=== PATIENT | female | born 1945 | race Caucasian/White ===

== ENCOUNTER 2018-08-07 12:32 | Emergency (ER) | payer MEDICARE ==
[~2018-08-07] VITALS: Ht 152.4 cm; Wt 68.2 kg
[2018-08-07 12:34] VITALS: BP 175/91; TEMP 99
[2018-08-07 13:35] LABS: BASO % 0.3 % (0.0-2.0); EOS # 0.1 (0.0-0.7); GRAN # 6.4 (1.4-6.5); GRAN % 69.7 % (42.2-75.2); HEMATOCRIT 42.4 % (37.0-47.0); LYMPH # 2.1 (1.2-3.4); LYMPH % 22.8 % (20.0-51.0); MEAN CELL VOLUME 94 fl (80.0-100.0); MEAN CORPUSCULAR HEMOGLOBIN 31 pg (27.0-31.0); MEAN CORPUSCULAR HGB CONC 33 g/dl (33.0-37.0); MEAN PLATELET VOLUME 9.7 fl (7.4-10.4); MONO # 0.5 (0.1-0.6); MONO % 5.9 % (1.7-9.3); PLATELET COUNT 230 K/mm3 (130-400); REDCELL DISTRIBUTION WIDTH-CV 12.6 % (11.5-14.5)
[2018-08-07 13:46] LABS: ALBUMIN 3.9 gm/dL (3.5-5.0); BILIRUBIN,TOTAL 1.1 mg/dL (0.0-1.0); CREATININE, serum 0.65 mg/dL (0.52-1.25); POTASSIUM 4.1 mmol/L (3.4-5.0); TOTAL PROTEIN 7.2 gm/dL (6.4-8.2)
[2018-08-07] MEDS ORDERED: PROTONIX20 MG PO (15:41)
[2018-08-07] MEDS ORDERED: CARAFATE 1GM1 G PO (15:41)
[2018-08-07 15:58] VITALS: PULSE 70
== END 2018-08-07 15:58 | disposition home or self-care (01) ==
LOC: COL.ER 12:32
PROVIDERS: Emergency Medicine
DX: K29.00 Acute gastritis without bleeding (principal); I10 Essential (primary) hypertension; K21.9 Gastro-esophageal reflux disease without esophagitis; E78.5 Hyperlipidemia, unspecified; Z90.710 Acquired absence of both cervix and uterus

== ENCOUNTER 2020-11-25 17:16 | Emergency (ER) | payer MEDICARE, MEDICAID ==
[~2020-11-25] VITALS: Ht 144.8 cm; Wt 68.2 kg
[~2020-11-25 17:16] MED LIST: CARAFATE 1GM1 G PO; PROTONIX20 MG PO
[2020-11-25 17:23] VITALS: TEMP 98.5
[2020-11-25 17:54] LABS: BASO % 0.3 % (0.0-2.0); EOS # 0.2 (0.0-0.7); GRAN # 3.9 (1.4-6.5); GRAN % 51.7 % (42.2-75.2); HEMATOCRIT 42.5 % (37.0-47.0); HEMOGLOBIN 13.8 g/dl (12.5-16.0); LYMPH % 39.3 % (20.0-51.0); MEAN CELL VOLUME 95 fl (80.0-100.0); MEAN CORPUSCULAR HEMOGLOBIN 31 pg (27.0-31.0); MEAN CORPUSCULAR HGB CONC 33 g/dl (33.0-37.0); MEAN PLATELET VOLUME 9.9 fl (7.4-10.4); MONO # 0.5 (0.1-0.6); MONO % 6.4 % (1.7-9.3); PLATELET COUNT 250 K/mm3 (130-400); RED BLOOD COUNT 4.48 M/mm3 (4.10-5.30); REDCELL DISTRIBUTION WIDTH-CV 12.5 % (11.5-14.5)
[2020-11-25 18:08] LABS: ALBUMIN 4.5 gm/dL (3.5-5.0); BILIRUBIN,TOTAL 0.5 mg/dL (0.0-1.0); CALCIUM 9.5 mg/dL (8.4-10.2); CREATININE, serum 0.83 (0.52-1.25); POTASSIUM 3.6 mmol/L (3.4-5.0)
[2020-11-25 18:35] LABS: COLLECTION METHOD CLEAN CATCH
[2020-11-25] MEDS ORDERED: CARAFATE 1GM1 G PO (18:39)
[2020-11-25] MEDS ORDERED: PROTONIX 40MG T40 MG PO ×2 (18:39)
[2020-11-25 18:40] LABS: MUCOUS Present /lpf; PH 7 (5-8); SQUAMOUS EPITHELIAL None Seen /hpf; URINE APPEARANCE Clear; URINE BACTERIA None Seen /hpf; URINE BILIRUBIN Negative (NEGATIVE); URINE BLOOD 1+ (NEGATIVE); URINE COLOR Straw; URINE GLUCOSE Negative (NEGATIVE); URINE KETONE Negative (NEGATIVE); URINE LEUKOCYTE ESTERASE Negative (NEGATIVE); URINE NITRATE Negative (NEGATIVE); URINE PROTEIN(semi-quant) Negative (NEGATIVE); URINE RBC 0-2 /hpf; URINE UROBILINOGEN Negative (NEGATIVE)
[2020-11-25 19:21] VITALS: BP 138/88; PULSE 79
== END 2020-11-25 19:25 | disposition home or self-care (01) ==
LOC: COL.ER 17:16
PROVIDERS: Physician Assistant
DX: R10.13 Epigastric pain (principal); K21.9 Gastro-esophageal reflux disease without esophagitis
CPT/HCPCS: J1885; J7030

== ENCOUNTER 2024-01-27 13:22 | Emergency (ER) | payer MEDICARE ==
[~2024-01-27] VITALS: Ht 152.4 cm; Wt 66.9 kg
[~2024-01-27 13:22] MED LIST changes: +PEPCID 20MG TAB20 MG PO; +PROTONIX 40MG T40 MG PO; +ZOFRAN ODT4 MG PO
[2024-01-27 13:36] VITALS: TEMP 98
[2024-01-27 14:14] LABS: BASO # 0.1 K/mm3 (0.0-0.2); BASO % 0.6 % (0.0-2.0); EOS # 0.1 K/mm3 (0.0-0.7); EOS % 1.2 % (0.0-4.0); GRAN # 4.5 K/mm3 (1.4-6.5); GRAN % 50.3 % (42.2-75.2); HEMATOCRIT 40.8 % (37.0-47.0); LYMPH # 3.7 K/mm3 (1.2-3.4); LYMPH % 41.1 % (20.0-51.0); MEAN CELL VOLUME 90 fl (80.0-100.0); MEAN CORPUSCULAR HEMOGLOBIN 31 pg (27-31); MEAN CORPUSCULAR HGB CONC 34 g/dl (33.0-37.0); MEAN PLATELET VOLUME 10.5 fl (7.4-10.4); MONO # 0.6 K/mm3 (0.1-0.6); MONO % 6.6 % (1.7-9.3); PLATELET COUNT 279 K/mm3 (130-400); RED BLOOD COUNT 4.53 M/mm3 (4.10-5.30)
[2024-01-27] MEDS ORDERED: NS 1,000 ML IV ONE (14:15)
[2024-01-27] MEDS ORDERED: LORazepam 2 MG/ML 1 ML VIAL IV ONE (14:15)
[2024-01-27 14:24] LABS: ALANINE AMINOTRANSFERASE 14 U/L (0-55); ALKALINE PHOSPHATASE 93 U/L (40-150); ANION GAP 16 mmol/L (7-16); AST,SGOT 28 U/L (5-34); BILIRUBIN,TOTAL 0.8 mg/dL (0.2-1.2); BLOOD UREA NITROGEN 11 mg/dL (10-20); CALCIUM 10.1 mg/dL (8.4-10.2); CHLORIDE 103 mEq/L (98-107); CREATININE, serum 0.83 mg/dL (0.57-1.11); GLUCOSE 97 mg/dL (70-99); LIPASE 73 U/L (8-78); POTASSIUM 3.3 mEq/L (3.5-4.5); SODIUM 138 mEq/L (136-145); TOTAL PROTEIN 8.2 g/dl (6.2-8.1)
[2024-01-27 15:31] LABS: TROPONIN-I < 0.010 ng/mL (0.00-0.033)
[2024-01-27 16:01] LABS: COLLECTION METHOD CLEAN CATCH
[2024-01-27 16:15] LABS: PH 7.5 (5.0-8.5); URINE APPEARANCE CLEAR (CLEAR/HAZY); URINE BLOOD NEGATIVE (NEGATIVE); URINE COLOR YELLOW (YELLOW); URINE GLUCOSE NEGATIVE (NEGATIVE); URINE KETONE NEGATIVE (NEGATIVE); URINE NITRATE NEGATIVE (NEGATIVE); URINE PROTEIN(semi-quant) NEGATIVE (NEGATIVE); URINE UROBILINOGEN 0.2 E.U/dL (0.2-1.0)
[2024-01-27 16:27] LABS: PROTHROMBIN TIME 11.2 SECONDS (9.7-12.8)
[2024-01-27] MEDS ORDERED: predniSONE 10 MG TAB PO ONE (17:00)
[2024-01-27] MEDS ORDERED: Home Cyclobenzaprine 10 MG #2 TABS/PACK PO ONE (17:00)
[2024-01-27] MEDS ORDERED: FLEXERIL 1010 MG/TAB PO (17:01)
[2024-01-27] MEDS ORDERED: PREDNISONE50 MG PO (17:01)
[2024-01-27 18:02] VITALS: BP 174/88; PULSE 94
== END 2024-01-27 18:04 | disposition home or self-care (01) ==
LOC: COL.ER 13:22
PROVIDERS: Emergency Medicine
DX: M54.12 Radiculopathy, cervical region (principal); R06.02 Shortness of breath; R42 Dizziness and giddiness; M62.838 Other muscle spasm; I45.10 Unspecified right bundle-branch block; E87.6 Hypokalemia; R79.89 Other specified abnormal findings of blood chemistry
CPT/HCPCS: J2060; J7030; J7512